=== PATIENT | male | born 1975 | race Caucasian/White ===

== ENCOUNTER 2017-01-26 14:44 | Emergency (ER) | payer BC ==
[2017-01-26] MEDS ORDERED: Ketorolac INJ* 60 MG/2 ML VIAL IM ONE (15:33)
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
[2017-01-26] MEDS ORDERED: Prochlorperazine TAB* 10 MG PO ONE (15:34)
[2017-01-26] MEDS ORDERED: Prochlorperazine TAB* 5 MG ONE (15:39)
== END 2017-01-26 16:23 | disposition home or self-care (01) ==
LOC: UCCORT 14:44
DX: G43.909 Migraine, unspecified, not intractable, without status migrainosus (principal); J01.90 Acute sinusitis, unspecified; F12.90 Cannabis use, unspecified, uncomplicated; F17.210 Nicotine dependence, cigarettes, uncomplicated
CPT/HCPCS: 96372; 99212; A9270-GY; G0463; J1885; Q0164

== ENCOUNTER 2017-05-17 19:26 | Emergency (ER) | payer BC ==
[2017-05-17 19:35] VITALS: BP 116/72
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
== END 2017-05-17 20:03 | disposition home or self-care (01) ==
LOC: UCCORT 19:26
DX: M54.40 Lumbago with sciatica, unspecified side (principal); Z87.891 Personal history of nicotine dependence
CPT/HCPCS: 99212; G0463

== ENCOUNTER 2017-10-20 14:23 | Emergency (ER) | payer BC, OTHER ==
[2017-10-20 15:09] VITALS: BP 121/77
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
== END 2017-10-20 15:19 ==
LOC: UCCORT 14:23
DX: R10.11 Right upper quadrant pain (principal); R11.2 Nausea with vomiting, unspecified; R19.7 Diarrhea, unspecified; Z87.891 Personal history of nicotine dependence
CPT/HCPCS: 99212; G0463

== ENCOUNTER 2018-04-04 15:30 | Emergency (ER) | payer BC, OTHER ==
[2018-04-04 15:48] VITALS: BP 123/83
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
[2018-04-04] MEDS ORDERED: Ketorolac INJ* 30 MG/ML 1 ML VIAL IV PUSH ONE (16:23)
[2018-04-04] MEDS ORDERED: diPHENhydraMINE IV* 50 MG/ML 1 ml VIAL (BENADRYL) IV ONE (16:23)
[2018-04-04] MEDS ORDERED: PROCHLORPERAZINE INJ 5 MG/ML 2 ML VIAL IV ONE (16:25)
[2018-04-04] MEDS ORDERED: NS 0.9% 1000 ML* 1,000 ML IV SCH (16:30)
== END 2018-04-04 17:44 | disposition home or self-care (01) ==
LOC: UCCORT 15:30
DX: G43.909 Migraine, unspecified, not intractable, without status migrainosus (principal); F17.210 Nicotine dependence, cigarettes, uncomplicated
CPT/HCPCS: 96361; 96374; 96375; 99212; G0463; J0780; J1200; J1885

== ENCOUNTER 2019-01-04 12:10 | Emergency (ER) | payer BC, OTHER ==
[2019-01-04 13:30] VITALS: BP 111/81
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
== END 2019-01-04 14:43 | disposition home or self-care (01) ==
LOC: UCCORT 12:10
DX: R11.2 Nausea with vomiting, unspecified (principal); R19.7 Diarrhea, unspecified; E10.9 Type 1 diabetes mellitus without complications; Z87.891 Personal history of nicotine dependence
CPT/HCPCS: 99211; G0463

== ENCOUNTER 2019-03-19 12:18 | Emergency (ER) | payer BC ==
[2019-03-19 13:28] VITALS: BP 130/85
[2019-03-19] MEDS ORDERED: Ketorolac INJ* 60 MG/2 ML VIAL IM ONE (14:48)
[2019-03-19] MEDS ORDERED: Acetaminophen TAB* 325 MG PO ONE (14:48)
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
[2019-03-19 19:26] LABS: HIV 4th Generation Negative (Negative)
[2019-03-19 19:35] LABS: Hepatitis C Antibody Negative (Negative)
[2019-03-22 14:36] LABS: Neisseria gonorrhoeae (GC) RNA Negative (Negative)
== END 2019-03-19 15:35 | disposition home or self-care (01) ==
LOC: UCCORT 12:18
DX: R51 Headache (principal); Z87.891 Personal history of nicotine dependence
CPT/HCPCS: 36415; 86803; 87389; 87491; 87591; 96372; 99212; A9270-GY; G0463; J1885

== ENCOUNTER 2019-05-27 08:18 | Emergency (ER) | payer BC ==
--- OUTSIDE RECORDS SUMMARY | 2019-05-27 08:41 | XMS REPORT | Continuity of Care Document ---
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 Manohar Pham MD Primary Care Physician Unavailable Payers Date Identification Numbers Payment Provider Subscriber Policy Number: [id number] Palmira Ted Torres PayID: [id number] [address] [address] [place] [address] Problems Active Problems Provider Date Bipolar disorder Manohar Pham MD Onset: 05/11/2019 Migraine without aura, not refractory Manohar Pham MD Onset: 02/03/2019 Prediabetes Manohar Pham MD Onset: 09/21/2018 Social History Type Date Description Comments Sex Unknown ETOH Use Occasionally consumes alcohol Tobacco Use Start: Unknown End: Unknown Patient is a former smoker 1992 Smoking Status Reviewed: 05/11/19 Patient is a former smoker 1992 Allergies, Adverse Reactions, Alerts Description No Known Drug Allergies Medications Active Medications SIG Qnty Indications Ordering Date Provider Topamax 1 tab by mouth 60tabs G43.009 Manohar Pham MD 03/24/2019 50mg Tablets twice a day as directed Sumatriptan 1 tab as needed for 30tabs G43.009 Manohar Pham MD 02/03/2019 Succinate migraine palomino, can 25mg repeat 1 tab in 2 Tablets hours if no improvement Ibuprofen 600-800mg po 1x Unknown daily as needed History Medications Cephalexin 1 tab by mouth 20caps L73.9 Manohar Pham MD 03/24/2019 - 500mg four times a day 05/11/2019 Capsules as directed Topamax 1 tab qhs for 1 60tabs G43.009 Manohar Pham MD 02/03/2019 - 25mg week, then 25mg 03/24/2019 Tablets bid Ciclopirox apply to affected 6.600ml B35.6 Manohar Pham MD 09/21/2018 - 8% area bid for 2-4 02/03/2019 Solution weeks Cephalexin 1 tab by mouth 20caps L73.9 Manohar Pham MD 09/21/2018 - 500mg four times a day 02/03/2019 Capsules as directed Bactroban apply to affected 30gm L73.9 Manohar Pham MD 08/20/2018 - 2% Cream area tid x 10 02/03/2019 days Ciclopirox Olamine apply to affected 60gm L73.9 Manohar Pham MD 2017 - area bid x4 weeks 02/03/2019 0.77% Cream Vital Signs Date Vital Result Comment 05/11/2019 9:35am BP Systolic 118 mmHg BP Diastolic 78 mmHg Body Temperature 98.3 F Heart Rate 94 /min Respiratory Rate 18 /min Height 66.5 inches 5'6.50" Weight 255.25 lb BMI (Body Mass Index) 40.6 kg/m2 BSA (Body Surface Area) 2.23 m2 Forest body weight in kilograms 66 kg O2 % BldC Oximetry 97 % Ra 03/24/2019 10:33am BP Systolic 112 mmHg BP Diastolic 80 mmHg Heart Rate 84 /min Respiratory Rate 18 /min Height 66.5 inches 5'6.50" Weight 260.38 lb BMI (Body Mass Index) 41.4 kg/m2 BSA (Body Surface Area) 2.25 m2 Forest body weight in kilograms 66 kg O2 % BldC Oximetry 98 % Ra 02/03/2019 8:27am BP Systolic 128 mmHg BP Diastolic 82 mmHg Heart Rate 80 /min Respiratory Rate 16 /min Height 66.5 inches 5'6.50" Weight 256.00 lb BMI (Body Mass Index) 40.7 kg/m2 BSA (Body Surface Area) 2.23 m2 Forest body weight in kilograms 66 kg 09/21/2018 9:45am BP Systolic 124 mmHg BP Diastolic 80 mmHg Heart Rate 112 /min Respiratory Rate 18 /min Height 66.5 inches 5'6.50" Weight 241.00 lb BMI (Body Mass Index) 38.3 kg/m2 BSA (Body Surface Area) 2.18 m2 Forest body weight in kilograms 66 kg O2 % BldC Oximetry 95 % 08/20/2018 10:34am BP Systolic Sitting Left Arm 134 mmHg BP Diastolic Sitting Left Arm 70 mmHg Body Temperature 97.6 F Heart Rate 79 /min Height 66.5 inches 5'6.50" Weight 248.12 lb BMI (Body Mass Index) 39.4 kg/m2 BSA (Body Surface Area) 2.20 m2 Forest body weight in kilograms 66 kg O2 % BldC Oximetry 96 % Results Test Date Facility Test Result H/L Range Note Glycohemoglobin A1c [facility] Glycohemoglobin 6.4 % High 4.2-6.3 1, [address] (A1c) [place], [place] [address] [phone] eAG 137 mg/dL LDL Cholesterol Profile 03/24/[address] Cholesterol 177 mg/dL <[address] [place] [address] [phone] Triglycerides 126 mg/dL <150 4 HDL Cholesterol 36 mg/dL Low >40 5 LDL-Cholesterol 116 mg/dL < 100 6 Hepatitis C Antibody 03/19/2019 [facility] HCV Index 0.01 s/c 7 [phone] Hepatitis C Antibody Negative Negative HIV 4TH 03/19/2019 [facility] HIV 4th Negative Negative Generation [phone] Generation GC/Chlamydia 03/19/2019 [facility] Chlamydia Negative Negative Amplified Rna [phone] trachomatis Rna Neisseria gonorrhoeae (GC) Rna Negative Negative CBC W/Automated 08/20/[address] White Blood 7.2 K/uL Normal 3.4-10.5 [address] [place], [place] [id number] [phone] Red Blood Count 4.86 M/uL Normal 4.20-5.80 Hemoglobin 13.3 gm/dL Normal 12.8-17.0 Hematocrit 41.7 % Normal 38.0-48.0 Mean Cell Volume 85.8 fl Normal 80.0-96.0 Mean Corpuscular HGB 27.4 pg Normal 27.0-33.0 Mean Corpuscular HGB Conc 31.9 g/dL Normal 31.7-36.0 Platelet Count 217 K/uL Normal 155-360 Red Cell Distri Width SD 42.0 fl Normal 36-51 Red Cell Distri Width %CV 13.6 % Normal 11.6-15.8 Mean Platelet Volume 11.1 fL High 6.6-10.6 Neut% 66.5 % Normal 33.0-73.0 Lymph % 23.2 % Normal 20.0-42.0 [place] % 6.5 % Normal 0.0-10.0 Eo% 3.5 % Normal 0.0-6.6 Bas% 0.3 % Normal 0.0-1.1 Neut# 4.78 K/uL Normal 1.8-7.0 Lymph # 1.67 K/uL Normal 1.0-4.0 [place] # 0.47 K/uL Normal 0.0-0.8 Eos # 0.25 K/uL Normal 0.0-0.5 Baso # 0.02 K/uL Normal 0.0-0.1 Comprehensive 08/20/[address] [facility] [address] Glucose 98 mg/dL Normal 74-106 Metabolic Panel [address] [place], [place] [id number] [phone] BUN 11 mg/dL Normal 7-18 Creatinine 0.8 mg/dL Normal 0.6-1.3 Glom Filtration Rate, Estimate >60 mL/min >60 If >60 mL/min >60 9 BUN/Creat 13.7 ratio Sodium 140 mmol/L Normal 136-145 Potassium 3.7 mmol/L Normal 3.5-5.1 Chloride 106 mmol/L Normal 98-107 Carbon Dioxide 28 mmol/L Normal 21-32 Anion Gap 6 mEq/L Low 8-16 Calcium 8.8 mg/dL Normal 8.5-10.1 Total Protein 7.9 g/dL Normal 6.4-8.2 Albumin 3.9 g/dL Normal 3.4-5.0 Globulin 4.0 g/dL Normal 1.9-4.3 Alb/Glob 1.0 ratio Bilirubin,Total 0.8 mg/dL Normal 0.2-1.0 Sgot/Ast 24 U/L Normal 15-37 SGPT/Alt 47 U/L Normal 12-78 Alkaline Phosphatase 84 U/L Normal 45-117 LDL Cholesterol 08/20/[address] Cholesterol 201 mg/dL High < 200 [address] [place] [address] [phone] Triglycerides 81 mg/dL <150 11 HDL Cholesterol 41 mg/dL >40 12 LDL-Cholesterol 144 mg/dL < 100 13 Glycohemoglobin 08/20/[address] Glycohemoglobin 6.0 % Normal 4.2-6.3 14 A1c [address] (A1c) [place] [address] [phone] eAG 126 mg/dL 1 R73.03 2 Elevated levels of HbA1c suggest the need for more aggressive treatment of glycemia. The [place] [employer] recommends that a primary goal of therapy should be a HbA1c of <7% and that physicians should re-evaluate the treatment regimen in patients with HbA1c values consistently >8%. 3 Reference Guidelines*: Desirable: ........... < 200 mg/dL Borderline High: ..... 200-239 mg/dL High: ................ >=240 mg/dL * The National Cholesterol Education Program (NCEP) 4 Reference Guidelines*: Normal: ............. < 150 mg/dL Borderline High: .... 150-199 mg/dL High: ............... 200-499 mg/dL Very High: .......... > 500 mg/dL * Source: National Cholesterol Education Program (NCEP) 5 Reference Guidelines*: Low HDL: ..... < 40 mg/dL Normal: ..... 40-60 mg/dL Desirable: ... > 60 mg/dL *The National Cholesterol Education Program(NCEP) 6 Reference Guidelines*: Optimal:........... <100 mg/dL Near Optimal....... 100-129 mg/dL Borderline High.... 130-159 mg/dL High............... 160-189 mg/dL Very High.......... >=190 mg/dL * Source: National Cholesterol Education Program (NCEP) 7 [id number] 8 Z00.01 9 Note: Persistent reduction for 3 months or more in an eGFR <60 mL/min/1.73 m2 defines CKD. Patients with eGFR values >/=60 mL/min/1.73 m2 may also have CKD if evidence of persistent proteinuria is present. The original MDRD equation for estimated GFR is not valid for patients less than 18 years of age. Additional information may be found at www.kdoqi.org. 10 Reference Guidelines*: Desirable: ........... < 200 mg/dL Borderline High: ..... 200-239 mg/dL High: ................ >=240 mg/dL * The National Cholesterol Education Program (NCEP) 11 Reference Guidelines*: Normal: ............. < 150 mg/dL Borderline High: .... 150-199 mg/dL High: ............... 200-499 mg/dL Very High: .......... > 500 mg/dL * Source: National Cholesterol Education Program (NCEP) 12 Reference Guidelines*: Low HDL: ..... < 40 mg/dL Normal: ..... 40-60 mg/dL Desirable: ... > 60 mg/dL *The National Cholesterol Education Program(NCEP) 13 Reference Guidelines*: Optimal:........... <100 mg/dL Near Optimal....... 100-129 mg/dL Borderline High.... 130-159 mg/dL High............... 160-189 mg/dL Very High.......... >=190 mg/dL * Source: National Cholesterol Education Program (NCEP) 14 Elevated levels of HbA1c suggest the need for more aggressive treatment of glycemia. The [place] Diabetes [employer] recommends that a primary goal of therapy should be a HbA1c of <7% and that physicians should re-evaluate the treatment regimen in patients with HbA1c values consistently >8%. Encounters Type Date Location Provider Dx Diagnosis Office Visit 05/11/2019 [facility] Manohar Pham MD F31.9 Bipolar disorder, 9:45a [facility] unspecified G43.009 Migraine w/o aura, not intractable, w/o status migrainosus Office Visit 03/24/2019 10:30a [facility] Manohar Pham MD R73.03 Prediabetes [facility] G43.009 Migraine w/o aura, not intractable, w/o status migrainosus E66.9 Obesity, unspecified R06.83 Snoring L73.9 Follicular disorder, unspecified Office Visit 02/03/2019 8:30a [facility] Manohar Pham, G43.009 Migraine w/o aura, [place] DEONDRE CAUSEY not intractable, w/o status migrainosus Office Visit 09/21/2018 10:00a [facility] Manohar Pham, B35.6 Tinea cruris [place] CALVERT MD L73.9 Follicular disorder, unspecified R73.03 Prediabetes F31.9 Bipolar disorder, unspecified Plan of Treatment Future Appointment(s):09/28/2019 8:30 am - Manohar Pham MD at [facility]09/20/2019 9:00 am - Manohar Pham MD at [facility]2018 - Manohar Pham MDF31.9 Bipolar disorder, unspecifiedRef[facility]G43.009 Migraine without aura, not intractable, without status migra
[2019-05-27 08:46] VITALS: BP 135/85
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
== END 2019-05-27 09:44 | disposition home or self-care (01) ==
LOC: UCCORT 08:18
DX: M72.2 Plantar fascial fibromatosis (principal); Z87.891 Personal history of nicotine dependence
CPT/HCPCS: 99212; G0463

== ENCOUNTER 2019-06-21 16:35 | Emergency (ER) | payer BC ==
[2019-06-21 17:05] VITALS: BP 108/80
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
== END 2019-06-21 17:19 | disposition home or self-care (01) ==
LOC: UCCORT 16:35
DX: M72.2 Plantar fascial fibromatosis (principal); Z87.891 Personal history of nicotine dependence
CPT/HCPCS: 99211; G0463

== ENCOUNTER 2019-12-14 23:38 | Emergency (ER) | payer BC ==
[2019-12-15] MEDS ORDERED: PROCHLORPERAZINE INJ 5 MG/ML 2 ML VIAL IV ONE (00:01)
[2019-12-15] MEDS ORDERED: NS 0.9% 1000 ML** 1,000 ML IV ONE (00:03)
[2019-12-15] MEDS ORDERED: Ketorolac INJ* 30 MG/ML 1 ML VIAL IV PUSH ONE (00:03)
[2019-12-15] MEDS ORDERED: diPHENhydraMINE IV* 50 MG/ML 1 ml VIAL (BENADRYL) SLOW PUSH ONE (00:03)
[2019-12-15 00:20] LABS: ABS Basophils 0.1 10^3/ul (0-0.2); ABS Eosinophils 0.2 10^3/ul (0-0.6); ABS Lymphocytes 2.7 10^3/ul (1.0-4.8); ABS Monocytes 0.4 10^3/ul (0-0.8); ABS Neutrophils 6.4 10^3/ul (1.5-7.7); Eosinophil % 1.6 %; Hematocrit 40 % (42-52); Hemoglobin 13.3 g/dL (14.0-18.0); Lymphocyte % 27.9 %; Mean Corpuscular HGB Conc 34 g/dL (31-36); Mean Corpuscular Hemoglobin 28 pg (27-31); Mean Corpuscular Volume 83 fL (80-94); Mean Platelet Volume 8.3 fL (7.4-10.4); Nucleated Red Blood Cells % 0.1; Platelet Count 253 10^3/uL (150-450); Red Blood Count 4.81 10^6 /uL (4.18-5.48); Red Cell Distribution Width 14 % (10-15); White Blood Count 9.8 10^3/uL (3.5-10.8)
[2019-12-15 00:37] LABS: Albumin 4.2 g/dL (3.2-5.2); Albumin/Globulin Ratio 1.4 (1-3); BUN/Creatinine Ratio 16.5 (8-20); Calcium 9.3 mg/dL (8.6-10.3); EGFR African American 108.5 (>60); EGFR Non-African American 89.7 (>60); Magnesium 1.7 mg/dL (1.9-2.7); Total Bilirubin 0.3 mg/dL (0.2-1.0); Total Protein 7.2 g/dL (6.4-8.9)
[2019-12-15 00:58] LABS: Potassium 3.7 mmol/L (3.5-5.0)
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
[2019-12-15 01:39] VITALS: BP 109/66
== END 2019-12-15 01:31 | disposition home or self-care (01) ==
LOC: ED 23:38
DX: R51 Headache (principal); R11.2 Nausea with vomiting, unspecified; R50.9 Fever, unspecified; H53.149 Visual discomfort, unspecified; F32.9 Major depressive disorder, single episode, unspecified; Z87.891 Personal history of nicotine dependence
CPT/HCPCS: 36415; 80053; 83735; 85025; 96361; 96374; 96375; 99283; J0780; J1200; J1885

== ENCOUNTER 2020-01-16 11:34 | Emergency (ER) | payer BC, OTHER ==
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
[2020-01-16] MEDS ORDERED: Naproxen TAB* 250 MG PO ONE (12:34)
[2020-01-16 12:40] VITALS: BP 112/78
[2020-01-16 12:50] LABS: Influenza A Molecular Negative (Negative); Influenza B Molecular Negative (Negative)
== END 2020-01-16 13:09 | disposition home or self-care (01) ==
LOC: UCCORT 11:34
DX: S29.011A Strain of muscle and tendon of front wall of thorax, initial encounter (principal); X50.3XXA Overexertion from repetitive movements, initial encounter; Y92.9 Unspecified place or not applicable; R05 Cough; Z20.828 Contact with and (suspected) exposure to other viral communicable diseases; Z87.891 Personal history of nicotine dependence
CPT/HCPCS: 87635; 99212; A9270-GY; G0463

== ENCOUNTER 2020-01-19 15:02 | Emergency (ER) | payer BC ==
[2020-01-19] MEDS ORDERED: Ketorolac *IM* INJ* 60 MG/2 ML VIAL IM ONE (15:29)
[2020-01-19] MEDS ORDERED: Lidocaine PATCH 5%* 1 PATCH TRANSDERM ONE (15:30)
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
[2020-01-19 17:00] VITALS: BP 113/73
[2020-01-19] MEDS ORDERED: Lidocaine Patch REMOVE* 1 NOTE MISC SCH (21:00)
== END 2020-01-19 16:55 | disposition home or self-care (01) ==
LOC: ED 15:02
DX: M62.830 Muscle spasm of back (principal); M54.5 Low back pain; F32.9 Major depressive disorder, single episode, unspecified; Z86.14 Personal history of Methicillin resistant Staphylococcus aureus infection; Z87.891 Personal history of nicotine dependence
CPT/HCPCS: 96372; 99282; A9270-GY; J1885

== ENCOUNTER 2023-06-09 14:40 | Observation (INO) ==
[2023-06-09 15:10] LABS: ABS Basophils 0.1 10^3/uL (0.0-0.1); ABS Lymphocytes 0.9 10^3/uL (1.0-4.8); ABS Monocytes 0.8 10^3/uL (0.0-1.1); ABS Neutrophils 11.5 10^3/uL (1.5-7.6); ABS Nucleated RBC 0.01 10^3/ul; Eosinophil % 0.3 %; Hemoglobin 13.9 g/dL (13.2-16.3); Lymphocyte % 6.8 %; Mean Corpuscular Hemoglobin 28.6 pg (27-33); Mean Corpuscular Volume 84.3 fL (80-97); Mean Platelet Volume 8.4 fL (7.5-11.2); Nucleated Red Blood Cells % 0.1 /100 WBC (0.0-0.4); Platelet Count 239 10^3/uL (150-450); Red Blood Count 4.87 10^6/uL (4.06-5.63); Red Cell Distribution Width 13.3 % (12-17); White Blood Count 13.3 10^3/uL (3.6-10.2)
[2023-06-09 15:21] LABS: INR 1.24 (0.83-1.13)
[2023-06-09 15:31] LABS: Albumin 3.3 g/dL (3.2-5.2); Albumin/Globulin Ratio 0.9 (1-3); Calcium 8.7 mg/dL (8.6-10.3); Creatinine, Serum 1.4 mg/dL (0.67-1.17); Globulin 3.5 g/dL (2-4); Potassium 3.5 mmol/L (3.5-5.0); Total Bilirubin 0.5 mg/dL (0.2-1.0); Total Protein 6.8 g/dL (6.4-8.9); eGFR CKD-EPI 61.6 (>60)
[2023-06-09 16:37] LABS: High Sensitivity Troponin 1 Hr 7 pg/mL (<20)
[2023-06-09] MEDS ORDERED: NS 0.9% 1000 ml BAG 1,000 ML IV ONE (16:37)
[2023-06-09] MEDS ORDERED: cefTRIAXone 1 gm/50 mL D5W 1 GM/50 ML BAG IV ONE (16:37)
[2023-06-09] MEDS ORDERED: Iodixanol (CONTRAST) 320 MG/ML 100 ML SDV IV ONE ×2 (16:43→17:21)
[2023-06-09] MEDS ORDERED: Azithromycin 500 MG IV - ED ONCE IVPB ONE (22:00)
[2023-06-09] MEDS: Enoxaparin 40 MG/0.4 ML SYR SUBCUT SCH (22:15)
[2023-06-10 05:56] LABS: ABS Eosinophils 0.1 10^3/uL (0.0-0.5); ABS Lymphocytes 0.8 10^3/uL (1.0-4.8); ABS Monocytes 0.7 10^3/uL (0.0-1.1); ABS Neutrophils 7.7 10^3/uL (1.5-7.6); Eosinophil % 0.8 %; Hemoglobin 12.1 g/dL (13.2-16.3); Lymphocyte % 8.5 %; Mean Corpuscular Hemoglobin 28.6 pg (27-33); Mean Corpuscular Hgb Conc 34.5 g/dL (31-36); Platelet Count 192 10^3/uL (150-450); Red Blood Count 4.22 10^6/uL (4.06-5.63); White Blood Count 9.3 10^3/uL (3.6-10.2)
[2023-06-10 06:17] LABS: Creatinine, Serum 1.1 mg/dL (0.67-1.17); Magnesium 1.8 mg/dL (1.9-2.7); Potassium 3.6 mmol/L (3.5-5.0); eGFR CKD-EPI 82.3 (>60)
[2023-06-10] MEDS: Empagliflozin 25 MG TAB PO SCH (08:23)
[2023-06-10] MEDS ORDERED: Enoxaparin 40 MG/0.4 ML SYR SUBCUT SCH (10:00)
[2023-06-10] MEDS ORDERED: cefTRIAXone 1 gm/50 mL D5W 1 GM/50 ML BAG IV SCH (17:00)
[2023-06-10] MEDS ORDERED: Azithromycin 500 mg/250 ml NS 500 MG/250 ML BAG IVPB SCH (22:00)
[2023-06-10] MEDS: Enoxaparin 40 MG/0.4 ML SYR SUBCUT SCH (22:08)
[2023-06-11] MEDS ORDERED: Magnesium Sulfate 2 gm BAG 2 GM/50 ML BAG IVPB ONE (08:02)
[2023-06-11] MEDS: Empagliflozin 25 MG TAB PO SCH (08:13)
[2023-06-11 10:58] VITALS: BP 108/74
[2023-06-11] MEDS ORDERED: Azithromycin 500 mg/250 ml NS 500 MG/250 ML BAG IVPB SCH ×2 (21:00→22:00)
== END 2023-06-11 13:47 | disposition home or self-care (01) ==
LOC: ED 14:40 → EDHOLD 14:40 → SUATTDRO 21:40 → EDHOLD 06-10 12:46 → MED 06-10 13:58
PROVIDERS: ADMIT Student in an Organized Health Care Education/Training Program; ATTEND Internal Medicine